=== PATIENT | male | born 2005 | race Caucasian/White ===

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

== ENCOUNTER 2023-05-03 01:49 | Emergency (ER) | payer SELFPAY ==
[2023-05-03] MEDS: Sodium Chloride 0.9% 2,000 ML IV ONE (01:51)
[2023-05-03] MEDS: Etomidate 2 MG/ML 10 ML SDV IVPUSH ONE (01:55)
[2023-05-03] MEDS: Rocuronium 100 MG/10 ML MDV IVPUSH ONE ×2 (01:56→02:40)
[2023-05-03 02:08] LABS: BASOPHILS ABSOLUTE AUTO 0.03 K/uL (0.00-0.20); BASOPHILS PERCENT AUTO 0.3 % (0.0-1.0); EOSINOPHILS PERCENT AUTO 1.7 % (0.0-6.0); HEMATOCRIT 49.4 % (42.0-52.0); IMMATURE GRAN ABSOLUTE AUTO 0.05 K/uL (0.00-0.05); IMMATURE GRAN PERCENT AUTO 0.4 % (0.0-0.4); LYMPHOCYTES ABSOLUTE AUTO 2.17 K/uL (1.00-4.80); LYMPHOCYTES PERCENT AUTO 18.3 % (24.0-44.0); MEAN CORPUSCULAR HEMOGLOBIN 31.3 pg (28.0-32.0); MEAN CORPUSCULAR HGB CONC 34.4 g/dL (32.0-36.0); MEAN CORPUSCULAR VOLUME 90.8 fL (83.0-99.0); MEAN PLATELET VOLUME 11.7 fL (9.4-12.4); MONOCYTES ABSOLUTE AUTO 0.71 K/uL (0.00-0.80); NEUTROPHILS ABSOLUTE AUTO 8.73 K/uL (1.80-7.70); NEUTROPHILS PERCENT AUTO 73.3 % (41.0-71.0); PLATELET COUNT,PLT 253 K/uL (150-400); RED BLOOD CELL COUNT 5.44 M/uL (4.52-5.90); WHITE BLOOD CELL COUNT,WBC 11.89 K/uL (3.9-11.3)
[2023-05-03] MEDS: Sodium Chloride 0.9% 10 ML Syringe FLUSH PRN (02:11)
[2023-05-03] MEDS: Sodium Chloride 0.9% 2.5 ML Syringe FLUSH PRN (02:11)
[2023-05-03] MEDS: Benzocaine 20% Topical Spray UD MUCMEM ONE (02:13)
[2023-05-03] MEDS: propofoL 100 ML IV SCH (02:18)
[2023-05-03 02:47] LABS: AMPHETAMINES SCREEN, URINE NEGATIVE (CUTOFF=500); BARBITURATE SCREEN,URINE NEGATIVE (CUTOFF=200); BENZODIAZEPINES SCREEN,URINE NEGATIVE (CUTOFF=150); BUPRENORPHINE SCREEN,URINE NEGATIVE (CUTOFF=10); METHADONE SCREEN, URINE NEGATIVE (CUTOFF=200); METHAMPHETAMINES SCREEN, URINE NEGATIVE (CUTOFF=500); OXYCODONE SCREEN,URINE NEGATIVE (CUT0FF=100); PCP SCREEN,URINE NEGATIVE (CUTOFF=25); THC SCREEN,URINE 20 NG/ML NEGATIVE (CUTOFF=50)
[2023-05-03 02:49] LABS: INR 1.01 (0.86-1.11)
[2023-05-03 03:04] LABS: ALANINE AMINOTRANSFERASE,ALT 53 IU/L (14-63); ALBUMIN 3.6 g/dL (3.4-5.0); ALKALINE PHOSPHATASE 120 U/L (46-116); ASPARTATE AMNIOTRANSFERASE,AST 39 IU/L (15-37); BILIRUBIN TOTAL 0.4 mg/dL (0.2-1.0); BLOOD UREA NITROGEN,BUN 9 mg/dL (7.0-18.0); CALCIUM 7.6 mg/dL (8.5-10.1); CARBON DIOXIDE,CO2 20.6 mmol/L (21.0-32.0); CHLORIDE,CL 109 mmol/L (98-107); CREATININE 0.7 mg/dL (0.8-1.3); ESTIMATED GFR 135 mL/min (>60); ETHANOL BLOOD MEDICAL 382 mg/dL; GLUCOSE RANDOM 140 mg/dL (74-106); PROTEIN TOTAL,TP 7.1 g/dL (6.4-8.2); SODIUM,NA 144 mmol/L (136-148)
[2023-05-03] MEDS: Propofol 200 MG/20 ML SDV IVPUSH ONE (03:15)
[2023-05-03] MEDS: fentaNYL/Normal Saline 2,500 MCG in Premix Bag 1 BAG IV PRN (03:18)
[2023-05-03] MEDS: Propofol 200 MG/20 ML SDV ONE (03:19)
[2023-05-03] MEDS: fentaNYL/Normal Saline 250 ML ONE (03:21)
[2023-05-03 05:51] LABS: BASE EXCESS ARTERIAL -8.7 (-2.0-3.0); BICARBONATE,ARTERIAL 18 mEq/L (22-26); PCO2 ARTERIAL 42 mmHG (35-45); PO2 ARTERIAL 195 mmHG (80-105)
[2023-05-03 07:04] VITALS: BP 103/64; PULSE 77
== END 2023-05-03 07:36 ==
LOC: MW.ED 01:49
DX: S00.11XA Contusion of right eyelid and periocular area, initial encounter (principal); S00.12XA Contusion of left eyelid and periocular area, initial encounter; R41.82 Altered mental status, unspecified; J45.909 Unspecified asthma, uncomplicated; Z79.899 Other long term (current) drug therapy; Z91.048 Other nonmedicinal substance allergy status
CPT/HCPCS: 31500; 36415; 36600; 43752; 51702; 70450; 70486; 71045; 71260; 72125; 74177; 80053; 80305; 80307; 82803; 84484; 85025; 85610; 86850; 86900; 86901; 96361; 96365; 96366; 99285; J2704; J3490; J7030; 36620